=== PATIENT | female | born 1955 | race Caucasian/White ===

== ENCOUNTER 2020-07-20 02:18 | Emergency (ER) | payer MEDICARE, OTHER ==
[~2020-07-20] VITALS: Ht 154.9 cm; Wt 64.0 kg
[~2020-07-20 02:18] MED LIST: ATOR20TA66 PO; BUPR100T13 PO; BUSP10TA11 PO; CITA20TA28 PO; LISI30TA4 PO; PANT40VI6 PO; RISP0.256 PO; RISP4TAB7 PO
[2020-07-20] MEDS ORDERED: methylPREDNISolone sod succ 125mg/2ml vial IV ONE ×2 (02:40→02:50)
[2020-07-20 03:10] LABS: ALBUMIN 4.3 G/DL (3.4-5.0); ANION GAP 15 (8-16); BLOOD UREA NITROGEN 13 MG/DL (7-18); BUN/CREATININE RATIO 15.7 (6.6-38.0); CALCIUM 9.7 MG/DL (8.5-10.1); CHLORIDE 101 MMOL/L (99-107); CREATININE 0.83 MG/DL (0.40-0.90); GLUCOSE 101 MG/DL (70-104); POTASSIUM 3.8 MMOL/L (3.5-5.1); SODIUM 139 MMOL/L (135-145); TOTAL CARBON DIOXIDE 23.2 MMOL/L (24-32); eGFR 69 ML/MIN
[2020-07-20 03:12] LABS: BASOPHILS % (AUTO) 0.4 % (0-1); EOSINOPHILS # (AUTO) 0.3 X10'3 (0-0.9); EOSINOPHILS % (AUTO) 5.8 % (0-6); HEMATOCRIT 42.3 % (35.0-45.0); HEMOGLOBIN 13.9 g/dl (12.0-16.0); LYMPHOCYTES # (AUTO) 1.6 X10'3 (1.1-4.8); LYMPHOCYTES % (AUTO) 30.2 % (21-51); MEAN CORPUSCULAR HEMOGLOBIN 30.9 PG (27.0-31.0); MEAN CORPUSCULAR VOLUME 93.6 FL (78-98); MEAN PLATELET VOLUME 6.7 FL (7.4-10.4); MONOCYTES # (AUTO) 0.5 X10'3 (0-0.9); MONOCYTES % (AUTO) 9.5 % (2-12); NEUTROPHILS # (AUTO) 2.9 X10'3 (1.8-7.7); NEUTROPHILS % (AUTO) 54.1 % (42-75); PLATELET COUNT 294 X10'3 (140-440); RED BLOOD COUNT 4.52 X10'6 (4.20-5.60); RED CELL DISTRIBUTION WIDTH 13.7 % (11.5-14.5); WHITE BLOOD COUNT 5.3 X10'3 (4.5-11.0)
--- NOTE | 2020-07-20 03:34 | NUR ---
PATIENT REPORTS IMPROVEMENT OF SWELLING AT THIS TIME AND MORE EASY TO SWALLOW.
[2020-07-20] MEDS ORDERED: IODIXANOL 320 MG/ML INFUS..BTL 100ML IV ONE (03:38)
[2020-07-20 05:15] VITALS: BP 176/91
== END 2020-07-20 05:25 | disposition home or self-care (01) ==
LOC: ER 02:19
DX: T78.3XXA Angioneurotic edema, initial encounter (principal); S01.301A Unspecified open wound of right ear, initial encounter; Z79.899 Other long term (current) drug therapy; X58.XXXA Exposure to other specified factors, initial encounter; Y93.89 Activity, other specified; Y92.89 Other specified places as the place of occurrence of the external cause; Y99.8 Other external cause status
CPT/HCPCS: 36415; 70491; 80048; 85025; 96374; 99285; J2930; Q9967